=== PATIENT | male | born 1990 | race African-American/Black ===

== ENCOUNTER → 2023-05-27 | Outpatient (CLI) | payer OTHER | LOC: MHCPAIN 15:20 | DX: M47.897 Other spondylosis, lumbosacral region (principal); M54.16 Radiculopathy, lumbar region; M48.061 Spinal stenosis, lumbar region without neurogenic claudication | CPT/HCPCS: G0463 ==

== ENCOUNTER → 2023-06-05 | Outpatient (CLI) | payer OTHER ==
[~2023-06-05] MED LIST: Iohexol 300 - 10 ML VIAL ONE; Lidocaine PF 2% (20 MG/ML) 2 ML VIAL ONE
== END ==
LOC: MHCPAIN 13:00
DX: M54.16 Radiculopathy, lumbar region (principal)
CPT/HCPCS: J1100; Q9967

== ENCOUNTER → 2023-09-10 | Outpatient (CLI) | payer OTHER | LOC: MHCPAIN 15:16 | DX: M47.896 Other spondylosis, lumbar region (principal); M51.36 Other intervertebral disc degeneration, lumbar region | CPT/HCPCS: G0463 ==